=== PATIENT | male | born 1955 | race Caucasian/White ===

== ENCOUNTER 2025-01-15 16:22 | Inpatient (IN) ==
[2025-01-15 18:33] LABS: Appearance,Urine Clear (Clear); Bilirubin,Urine Negative (Negative); Color,Urine Yellow; Glucose,Urine (UA) Negative (Negative); Ketones,Urine Negative (Negative); Leukocyte Esterase,Urine Negative /uL (Negative); Mucus,Urine Mod /hpf; Nitrate,Urine Negative (Negative); Protein,Urine 100 mg/dL (Negative); Specific Gravity,Urine 1.025 (1.000-1.035); Urine Blood Negative ery/mcL (Negative); Urine Hyaline Cast 3 /lph (0-2); Urine RBC 0 /hpf (0-3); Urine Squamous Epithelial Cell 0 /hpf (0-4); Urine WBC 2 /hpf (0-4); Urobilinogen,Urine Normal
[2025-01-15 18:35] LABS: ALT/SGPT 31 U/L (<40); AST/SGOT 18 U/L (<40); Albumin 4.2 gm/dL (3.2-5.2); Albumin/Globulin Ratio 1.5 (1.0-2.3); Alkaline Phosphatase 121 U/L (39-117); Bilirubin,Total 0.8 mg/dL (0.1-1.0); Blood Urea Nitrogen 17 mg/dL (8-23); Carbon Dioxide 26 mmol/L (22-30); Chloride 105 mmol/L (96-108); Globulin 2.8 gm/dL (2.2-3.7); Glomerular Filtration Rate 60; Glucose 157 mg/dL (70-105); Sodium 143 mmol/L (133-145); Thyroid Stimulating Hormone 2.69 uIU/mL (0.27-5.01)
[2025-01-15 18:44] LABS: Basophils # (Auto) 0.03 K/mcL (0.00-0.30); Basophils % (Auto) 0.3 % (0.0-2.0); Eosinophils % (Auto) 0.9 % (0.0-7.0); Hematocrit 51.2 % (40.1-51.0); Hemoglobin 16.8 g/dL (13.7-17.5); Lymphocytes # (Auto) 1.56 K/mcL (1.50-4.80); Lymphocytes % (Auto) 13.3 % (15.5-49.0); Mean Cell Volume 88.9 fL (80.0-100.0); Mean Corpuscular HGB Conc 32.8 g/dL (31.0-36.0); Mean Platelet Volume 9.9 fL (8.8-12.5); Monocytes # (Auto) 0.72 K/mcL (0.10-0.90); Monocytes % (Auto) 6.1 % (1.0-12.0); Neutrophils % (Auto) 79.3 % (38.0-78.0); Platelet Count 272 K/mcL (140-440); RBC 5.76 M/mcL (4.63-6.08); Red Cell Distribution Width 12.4 % (11.5-14.5); WBC 11.7 K/mcL (4.5-11.0)
[2025-01-15 19:01] LABS: Alcohol, Blood < 10.1 mg/dL; Alcohol,Blood < 0.010 gm/dL (<0.010)
[2025-01-15 19:36] LABS: Acetaminophen < 5.0 ug/mL; Salicylate < 0.5 mg/dL
[2025-01-15 19:40] LABS: Amphetamine Screen,Urine None detected; Barbiturate Screen,Urine None detected; Benzodiazepines Screen,Urine None detected; Cannabinoid Screen,Urine None detected; Cocaine Screen,Urine None detected; Fentanyl, Urine Screen None Detected; Opiate Screen,Urine None detected; Oxycodone, Urine Screen None detected; Phencyclidine Screen,Urine None detected
[2025-01-15] MEDS: METOPROLOL TARTRATE 50 MG TABLET PO ONE (20:00)
[2025-01-15] MEDS: THIAMINE 500 MG in 0.9 % SODIUM CHLORIDE 50 ML IV ONE (20:06)
[2025-01-15] MEDS ORDERED: DEXTROSE 31 GM ORAL.SUSP PO PRN (20:42)
[2025-01-15] MEDS ORDERED: ONDANSETRON 4 MG/2 ML VIAL IV PRN (20:42)
[2025-01-15] MEDS ORDERED: DEXTROSE 50% 50 ML VIAL IV PRN (20:42)
[2025-01-15] MEDS ORDERED: LABETALOL HCL 20 MG/4 ML VIAL IV PRN (20:42)
[2025-01-15] MEDS: INSULIN LISPRO 1 UNIT/0.01 ML UNIT SQ SCH (21:21)
[2025-01-15] MEDS: 0.9 % SODIUM CHLORIDE 10 ML SYRINGE IV SCH (21:21)
[2025-01-15] MEDS: SENNOSIDES 1 TABLET PO SCH (21:21)
[2025-01-15] MEDS: DOCUSATE SODIUM 100 MG CAPSULE PO SCH (21:21)
[2025-01-15] MEDS: ACETAMINOPHEN 325 MG TABLET PO PRN (22:31)
[2025-01-15] MEDS: ENALAPRILAT 1.25 MG/ML VIAL IV PRN (22:51)
[2025-01-16 06:01] LABS: Basophils # (Auto) 0.03 K/mcL (0.00-0.30); Basophils % (Auto) 0.3 % (0.0-2.0); Eosinophils # (Auto) 0.28 K/mcL (0.00-0.70); Hematocrit 46.6 % (40.1-51.0); Hemoglobin 15.2 g/dL (13.7-17.5); Lymphocytes # (Auto) 1.69 K/mcL (1.50-4.80); Lymphocytes % (Auto) 18.2 % (15.5-49.0); Mean Cell Volume 90.1 fL (80.0-100.0); Mean Corpuscular HGB Conc 32.6 g/dL (31.0-36.0); Mean Platelet Volume 9.8 fL (8.8-12.5); Monocytes # (Auto) 0.66 K/mcL (0.10-0.90); Monocytes % (Auto) 7.1 % (1.0-12.0); Neutrophils % (Auto) 71.2 % (38.0-78.0); Platelet Count 226 K/mcL (140-440); RBC 5.17 M/mcL (4.63-6.08); Red Cell Distribution Width 12.6 % (11.5-14.5); WBC 9.3 K/mcL (4.5-11.0)
[2025-01-16 06:18] LABS: ALT/SGPT 26 U/L (<40); AST/SGOT 15 U/L (<40); Albumin 3.6 gm/dL (3.2-5.2); Albumin/Globulin Ratio 1.6 (1.0-2.3); Alkaline Phosphatase 102 U/L (39-117); Bilirubin,Direct 0.4 mg/dL (<0.3); Bilirubin,Total 0.9 mg/dL (0.1-1.0); Blood Urea Nitrogen 17 mg/dL (8-23); Calcium 9.4 mg/dL (8.6-10.4); Carbon Dioxide 22 mmol/L (22-30); Chloride 108 mmol/L (96-108); Globulin 2.3 gm/dL (2.2-3.7); Glomerular Filtration Rate 67; Glucose 158 mg/dL (70-105); Lactate Dehydrogenase 153 U/L (135-225); Phosphorous 4.3 mg/dL (2.5-4.5); Potassium 3.6 mmol/L (3.3-5.1); Sodium 143 mmol/L (133-145); Triglycerides 141 mg/dL (<150); Uric Acid 7.1 mg/dL (2.5-8.0)
[2025-01-16 07:57] LABS: Estimated Average Glucose(eAG) 140 mg/dL; Hemoglobin A1C 6.5 % Hgb (4.0-6.0)
[2025-01-16] MEDS: ENOXAPARIN 40 MG/0.4 ML SYRINGE SQ SCH (08:16)
[2025-01-16] MEDS: THIAMINE 300 MG in 0.9 % SODIUM CHLORIDE 50 ML IV SCH (09:49)
[2025-01-16] MEDS: LISINOPRIL 20 MG TABLET PO SCH (12:15)
[2025-01-16] MEDS: SPIRONOLACTONE 25 MG TABLET PO SCH (12:15)
[2025-01-16] MEDS: METOPROLOL SUCCINATE 50 MG TAB.XL.24H PO SCH (12:15)
[2025-01-16] MEDS: LORazepam 2 MG/ML VIAL IV PRN (20:00)
[2025-01-16] MEDS: DULoxetine 30 MG CAPSULE PO SCH (20:06)
[2025-01-16] MEDS: 0.9 % SODIUM CHLORIDE 10 ML SYRINGE IV SCH (20:10)
[2025-01-17 06:17] LABS: Blood Urea Nitrogen 17 mg/dL (8-23); Calcium 9.3 mg/dL (8.6-10.4); Carbon Dioxide 26 mmol/L (22-30); Chloride 106 mmol/L (96-108); Glomerular Filtration Rate 60; Glucose 146 mg/dL (70-105); Potassium 3.9 mmol/L (3.3-5.1); Sodium 143 mmol/L (133-145)
[2025-01-17] MEDS: CLOPIDOGREL 75 MG TABLET PO SCH (08:31)
[2025-01-17] MEDS: FOLIC ACID 1 MG TABLET PO SCH (08:31)
[2025-01-17] MEDS: ASPIRIN 81 MG TAB.CHEW PO SCH (08:31)
[2025-01-17] MEDS: DULoxetine 30 MG CAPSULE PO SCH (08:31)
[2025-01-17] MEDS: MULTIVIT,THER IRON,CA,FA & MIN 1 TABLET PO SCH (08:31)
[2025-01-17] MEDS: ATORVASTATIN 40 MG TABLET PO SCH (08:31)
[2025-01-17] MEDS: FUROSEMIDE 20 MG TABLET PO SCH (08:31)
[2025-01-17] MEDS: amLODIPine 5 MG TABLET PO SCH (11:09)
[2025-01-17] MEDS: OLANZapine 2.5 MG TABLET PO SCH (20:40)
[2025-01-18] MEDS: amLODIPine 10 MG TABLET PO SCH (08:09)
[2025-01-18] MEDS ORDERED: OLANZapine 2.5 MG TABLET PO PRN (08:19)
[2025-01-20] MEDS: glipiZIDE 5 MG TABLET PO SCH (16:51)
[2025-01-20] MEDS: metFORMIN 500 MG TABLET PO SCH (17:22)
== END 2025-01-21 13:09 | DRG 57 ==
LOC: ED 16:22 → MEDSUR 20:38
PROVIDERS: ADMIT Internal Medicine; ATTEND Internal Medicine

== ENCOUNTER 2025-02-08 08:43 | Observation (INO) ==
[2025-02-08] MEDS: ACETAMINOPHEN 500 MG TABLET PO SCH (09:02)
[2025-02-08] MEDS: oxyCODONE 10 MG TAB.ER.12H PO SCH (09:02)
[2025-02-08] MEDS: PREGABALIN 75 MG CAPSULE PO SCH (09:02)
[2025-02-08] MEDS: CELECOXIB 200 MG CAPSULE PO SCH (09:03)
[2025-02-08] MEDS ORDERED: PROPOFOL 200 MG/20 ML VIAL IV ONE (10:28)
[2025-02-08] MEDS ORDERED: LIDOCAINE 2% PF 5 ML VIAL ONE (10:29)
[2025-02-08] MEDS ORDERED: ONDANSETRON 4 MG/2 ML VIAL ONE (10:29)
[2025-02-08] MEDS ORDERED: TRANEXAMIC ACID 1,000 MG/10 ML VIAL ONE (10:29)
[2025-02-08] MEDS ORDERED: ROPIVACAINE HCL/PF 30 ML VIAL IJ ONE (10:29)
[2025-02-08] MEDS ORDERED: KETAMINE 50 MG/ML ML ONE (10:29)
[2025-02-08] MEDS ORDERED: DEXAMETHASONE 10 MG/ML VIAL ONE (10:29)
[2025-02-08] MEDS ORDERED: MAGNESIUM SULFATE 2 GM/50 ML BAG IV ONE (10:29)
[2025-02-08] MEDS: ceFAZolin 2 GM in DEXTROSE 5% IN WATER 50 ML IV SCH (11:30)
[2025-02-08] MEDS ORDERED: HYDROmorphone 0.5 MG/0.5 ML SYRINGE ONE ×2 (11:59→12:14)
[2025-02-08] MEDS ORDERED: ePHEDrine 50 MG/5 ML SYRINGE (ANEST) IV ONE (12:24)
[2025-02-08] MEDS: 0.9 % SODIUM CHLORIDE 9 ML, KETOROLAC 30 MG, ROPIVACAINE HCL/PF 49.5 ML, EPINEPHrine 0.... IJ SCH (12:25)
[2025-02-08] MEDS ORDERED: LACTATED RINGERS 250 ML IV PRN (12:48)
[2025-02-08] MEDS ORDERED: ONDANSETRON 4 MG/2 ML VIAL IV PRN ×2 (12:48→13:05)
[2025-02-08] MEDS ORDERED: IPRATROPIUM/ALBUTEROL 3 ML AMPUL.NEB NEB PRN (12:48)
[2025-02-08] MEDS ORDERED: MEPERIDINE 25 MG/ML VIAL IV PRN (12:48)
[2025-02-08] MEDS ORDERED: fentaNYL 100 MCG/2 ML VIAL IV PRN (12:48)
[2025-02-08] MEDS ORDERED: METHOCARBAMOL 1,000 MG/10 ML VIAL IV PRN (12:48)
[2025-02-08] MEDS ORDERED: diphenhydrAMINE 50 MG/ML VIAL IV PRN (12:48)
[2025-02-08] MEDS ORDERED: MAGNESIUM HYDROXIDE 30 ML ORAL.SUSP PO PRN ×2 (13:05→13:15)
[2025-02-08] MEDS ORDERED: BENZOCAINE/MENTHOL 1 LOZENGE PO PRN (13:05)
[2025-02-08] MEDS ORDERED: BISACODYL 10 MG SUPP.RECT PR PRN (13:06)
[2025-02-08] MEDS ORDERED: FLEETS ADULT 1 DOSE ENEMA PR PRN (13:15)
[2025-02-08] MEDS ORDERED: BISACODYL 5 MG TABLET PO PRN (13:30)
[2025-02-08] MEDS ORDERED: GLUCAGON,HUMAN RECOMBINANT 1 MG VIAL IV PRN (13:30)
[2025-02-08] MEDS: TRANEXAMIC ACID 1,000 MG/10 ML VIAL IV SCH (13:48)
[2025-02-08] MEDS: NALOXONE HCL 0.4 MG/ML VIAL IV PRN (14:32)
[2025-02-08] MEDS: 0.9 % SODIUM CHLORIDE 1,000 ML IV SCH (15:11)
[2025-02-08] MEDS: HYDROcodone/APAP 10/325MG TABLET PO PRN (15:11)
[2025-02-08] MEDS: 0.9 % SODIUM CHLORIDE 10 ML SYRINGE IV SCH (15:14)
[2025-02-08] MEDS: LACTATED RINGERS 1,000 ML IV SCH (15:16)
[2025-02-08] MEDS: metFORMIN 500 MG TABLET PO SCH (17:09)
[2025-02-08] MEDS: ceFAZolin 1 GM VIAL IV SCH (19:12)
[2025-02-08] MEDS: VITAMIN D3 25 MCG TABLET PO SCH (20:49)
[2025-02-08] MEDS: ASPIRIN 81 MG TAB.CHEW CHEWED SCH (20:50)
[2025-02-08] MEDS: glipiZIDE 5 MG TABLET PO SCH (20:50)
[2025-02-08] MEDS: METOPROLOL SUCCINATE 50 MG TAB.XL.24H PO SCH (20:50)
[2025-02-08] MEDS: DOCUSATE SODIUM 100 MG CAPSULE PO SCH (20:50)
[2025-02-08] MEDS ORDERED: TEMAZEPAM 15 MG CAPSULE PO PRN (21:00)
[2025-02-09] MEDS: MULTIVIT,THER IRON,CA,FA & MIN 1 TABLET PO SCH (08:33)
[2025-02-09] MEDS: CLOPIDOGREL 75 MG TABLET PO SCH (08:33)
[2025-02-09] MEDS: FUROSEMIDE 20 MG TABLET PO SCH (08:33)
[2025-02-09] MEDS: amLODIPine 10 MG TABLET PO SCH (08:33)
[2025-02-09] MEDS: LISINOPRIL 20 MG TABLET PO SCH (08:34)
[2025-02-09] MEDS: SPIRONOLACTONE 25 MG TABLET PO SCH (08:34)
[2025-02-09] MEDS: DULoxetine 30 MG CAPSULE PO SCH (08:34)
[2025-02-09] MEDS: ATORVASTATIN 40 MG TABLET PO SCH (08:34)
[2025-02-09] MEDS: FISH OIL 1,000 MG CAPSULE PO SCH (08:34)
[2025-02-09] MEDS: MAGNESIUM OXIDE 400 MG TABLET PO SCH (08:35)
[2025-02-09] MEDS: THIAMINE 100 MG TABLET PO SCH (08:35)
[2025-02-09] MEDS ORDERED: NON FORMULARY MEDICATION 1 DOSE MISCELL (Aspirin [Adult Low Dose Aspirin] 81 mg tablet,del PO SCH (09:00)
[2025-02-09] MEDS: ACETAMINOPHEN 325 MG TABLET PO PRN (18:51)
[2025-02-09] MEDS: KETOROLAC 15 MG/ML VIAL IV PRN (20:42)
[2025-02-09] MEDS: TAMSULOSIN 0.4 MG CAPSULE PO SCH (20:43)
[2025-02-10] MEDS: POLYETHYLENE GLYCOL 3350 17 GM PACKET PO PRN (20:07)
[2025-02-11] MEDS: HYDROmorphone 1 MG/ML SYRINGE IV PRN (01:52)
== END 2025-02-12 13:30 ==
LOC: MEDSUR 08:43 → SUR 08:43 → MEDSUR 14:57
PROVIDERS: ADMIT Orthopaedic Surgery; ATTEND Orthopaedic Surgery